=== PATIENT | female | born 1940 | race Caucasian/White ===

== ENCOUNTER 2024-03-02 11:02 | Day surgery (SDC) | payer OTHER ==
[2024-03-02] VITALS (9 sets, daily range): BP systolic 98–120; BP diastolic 57–84
[~2024-03-02] VITALS: Ht 157.5 cm; Wt 45.5 kg
[~2024-03-02 11:02] MED LIST: ALBU.083IS IH; ALBU8HFA2 INH; ALBU90I INH; ALBU90OI INH; ALBU90OI6 INH; ALBU90OI61 INH; ALBUTEROL; ASPI325; ASPI325 PO; ASPI325EC; AZIT250 PO; Acetaminophen650 M1 PO; Antivert25 MG PO; CALACE667G PO; CALCAVITDA PO; CHOL10002 PO; CIPRO500 MG PO; CLIN150 PO; CYAN100 PO; Cleocin HCl150 MG PO; ERTAPENEM1 G6 IV; FISH OIL 1,0001 EA10 PO; FISH1000; FISH1000 PO; FLUCONAZOLE IV; FLUSAL2505 IH; FLUT110OIA IH; GABA100 PO; GLIP5 PO; HUMALOG KW200 UNIT/2 SC; HYDACE5 PO; Hair, Skin & N1 EACH PO; Humalog100 UNIT/1; INSR10I SC; INSULANI SC; INSULIN; JUVEN PACKET1 EAC3 PO; L-MESITRAN SOFT50 GM TP; Lantus100 UNIT/1 SC; MECL25 PO; MELO7.5 PO; METF500; METF500 PO; METO25 PO; MULTI-VITAMIN1 EAC2 PO; MULVITMINF; NAPR500 PO; Norco 5-325 Ta1 EACH PO; OXYACE5T PO; PRED20 PO; PROM25 PO; PYRI100 PO; Percocet 5-3251 EACH PO; RXHYDACE PO; SYMBICORT; SYMBICORT 160-4.6 GM INH; TOCO1000 PO; TOCO400; TRAM50 PO; VISBIOME 112.51 EACH PO; Vitamin B-12100 MCG PO; ZINC220 PO; Zofran Odt4 MG SL; Zofran Odt8 MG SL
[2024-03-02] MEDS ORDERED: HUMALOG JU100 UNIT/2 SQ (11:55)
[2024-03-02] MEDS ORDERED: METO25 PO (11:56)
--- NOTE | 2024-03-02 12:00 | NUR ---
PATIENT ARRIVED TO FACILITY WITH RIGHT [address] IV REMOVED WITHOUT DIFFICULTY, CATHETER INTACT. NEW PIV PLACED FOR PROCEDURE
--- NOTE | 2024-03-02 12:06 | NUR ---
22G IV IN RAC BY MICHAEL OCONNOR.
[2024-03-02] MEDS ORDERED: NS 500 ML IV ONE (13:27)
[2024-03-02] MEDS ORDERED: Nitroglycerin 2 MG/20 ML BTL ONE (13:28)
[2024-03-02] MEDS ORDERED: Heparin Sodium 1000 Units/ML 10ML MDV ONE (13:28)
[2024-03-02] MEDS ORDERED: NS 1,000 ML IV ONE ×2 (13:28→13:40)
[2024-03-02] MEDS ORDERED: Midazolam HCl 1MG / ML 2ML Vial ONE (13:50)
[2024-03-02] MEDS ORDERED: FentaNYL Citrate 50 MCG/ML 2 ML Injection ONE (13:51)
--- NOTE | 2024-03-02 15:22 | NUR ---
pt back to recovery from lab. pt a&o. groin site soft and non-tender per pt. no bleeding noted. repeat v/s.
--- NOTE | 2024-03-02 16:19 | NUR ---
GROIN SITE SOFT AND NON-TENDER PER PT. NO BLEEDING NOTED.
--- NOTE | 2024-03-02 16:43 | NUR ---
pt given lunch tray. groin site soft and non-tender per pt. no bleeding noted.
--- NOTE | 2024-03-02 17:28 | NUR ---
PT GIVEN DC INSTRUCTIONS AND VERBALIZED UNDERSTANDING. REPORT AND DC INSTRUCTIONS GIVEN TO MAYELIN CASTILLO RN. NO FURTHER QUESTIONS REPORTED. IV OUT. PT CHANGED AND MOVED TO VIA [facility]. PT ARRIVED W/O PANTS ON THIS MORNING. PT REFUSED PANTS WHEN OFFERED IN PREPARATION FOR DC. PT TAKEN TO [facility] WHERE [facility] IS WAITING TO TAKE PT BACK TO MAYELIN CASTILLO.
[2024-03-20] MEDS ORDERED: ERTAPENEM1 G6 IJ (12:23)
[2024-03-20] MEDS ORDERED: MULTIVITAMIN PO (12:25)
== END 2024-03-02 19:00 | disposition home or self-care (01) ==
LOC: MHTC 11:02
DX: I70.223 Atherosclerosis of native arteries of extremities with rest pain, bilateral legs (principal); Z88.2 Allergy status to sulfonamides; Z88.5 Allergy status to narcotic agent
CPT/HCPCS: 37224; 37228; 37232; 75625; 75716; 75774; 76937; 99152; 99153; C1725; C1760; C1769; C1887; C1894; J1644; J2250; J3010; J7030; J7050; Q9967

== ENCOUNTER 2024-03-21 07:37 | Day surgery (SDC) | payer OTHER ==
[2024-03-21] VITALS (8 sets, daily range): BP systolic 101–125; BP diastolic 57–87
[~2024-03-21] VITALS: Ht 157.5 cm; Wt 45.0 kg
[~2024-03-21 07:37] MED LIST changes: +ERTAPENEM1 G6 IJ; +HUMALOG JU100 UNIT/2 SQ; +Heparin Sodium 1000 Units/ML 10ML MDV ONE; +MULTIVITAMIN PO; +NS 1,000 ML IV ONE; +NS 500 ML IV ONE; +Nitroglycerin 2 MG/20 ML BTL ONE
[2024-03-21] MEDS ORDERED: Midazolam HCl 1MG / ML 2ML Vial ONE (08:48)
[2024-03-21] MEDS ORDERED: FentaNYL Citrate 50 MCG/ML 2 ML Injection ONE (08:48)
[2024-03-21] MEDS ORDERED: NS 1,000 ML IV ONE (08:48)
[2024-03-21] MEDS ORDERED: DiphenhydrAMINE HCl 50 MG/ML 1ML Vial ONE (10:20)
[2024-03-21] MEDS ORDERED: CLOP75 PO (11:11)
== END 2024-03-21 22:43 | disposition home or self-care (01) ==
LOC: MHTC 07:37
DX: E11.51 Type 2 diabetes mellitus with diabetic peripheral angiopathy without gangrene (principal); I70.223 Atherosclerosis of native arteries of extremities with rest pain, bilateral legs; J45.909 Unspecified asthma, uncomplicated; I25.2 Old myocardial infarction; E11.42 Type 2 diabetes mellitus with diabetic polyneuropathy; E11.22 Type 2 diabetes mellitus with diabetic chronic kidney disease; N18.30 Chronic kidney disease, stage 3 unspecified; J44.9 Chronic obstructive pulmonary disease, unspecified; Z88.2 Allergy status to sulfonamides; Z88.8 Allergy status to other drugs, medicaments and biological substances
CPT/HCPCS: 76937; 85347; 99152; 99153; C1725; C1760; C1769; C1887; C1894; J1200; J1644; J2250; J3010; J7030; J7050; Q9967